=== PATIENT | female | born 2000 | race Caucasian/White ===

== ENCOUNTER 2025-02-27 07:01 | Inpatient (IN) | payer MEDICAID ==
[2025-02-27] MEDS ORDERED: Carboprost Tromethamine 250 MCG/1 ML Amp IM PRN (07:23)
[2025-02-27] MEDS ORDERED: Sodium Chloride 0.9% 10 ML Syringe FLUSH PRN (07:23)
[2025-02-27] MEDS ORDERED: Misoprostol 50 MCG (1/2 of 100 MCG) Tab PO PRN (07:23)
[2025-02-27] MEDS ORDERED: Penicillin G Potassium 3 MILLUNITS in Sodium Chloride 0.9% 100 ML IV SCH (07:30)
[2025-02-27] MEDS ORDERED: Oxytocin/Lactated Ringers 30 UNIT/500 ML BAG IV SCH (07:30)
[2025-02-27 08:34] LABS: PLATELET COUNT,PLT 162.0 10^3/uL (150-450); RED BLOOD CELL COUNT 4.12 10^6/uL (4.2-5.4); WHITE BLOOD CELL COUNT,WBC 11.3 10^3/uL (5.0-10.0)
[2025-02-27] MEDS: Lactated Ringers 1,000 ML IV SCH (08:56)
[2025-02-27] MEDS: Penicillin G Potassium 5 MILLUNITS in Sodium Chloride 0.9% 100 ML IV ONE (08:57)
[2025-02-27] MEDS: Misoprostol 50 MCG (1/2 of 100 MCG) Tab PO SCH (09:07)
[2025-02-27] MEDS: Penicillin G Potassium 3 MILLUNITS in Sodium Chloride 0.9% 100 ML IV SCH (13:09)
[2025-02-27] MEDS: Lactated Ringers 1,000 ML IV ONE (19:35)
[2025-02-27] MEDS: Ondansetron 4 MG/2 ML SDV IVPUSH PRN (23:04)
[2025-02-27] MEDS: Oxytocin/Normal Saline 30 UNIT/500 ML BAG IV SCH (23:57)
[2025-02-28] MEDS ORDERED: Oxytocin 10 Units/1 ML SDV IM PRN (07:57)
[2025-02-28] MEDS: Prenatal Multivitamin with Calcium/Folic Acid/Iron Tab PO SCH (08:28)
[2025-02-28] MEDS: Benzocaine/Menthol 20%-0.5% Spray 78 GM Cannister TOP PRN (08:29)
[2025-02-28] MEDS: Witch Hazel Medicated Pads 100/Jar TOP PRN (08:29)
[2025-02-28] MEDS: Ketorolac 30 MG/ML SDV IVPUSH PRN (16:39)
[2025-03-01 11:31] LABS: PLATELET COUNT,PLT 160.0 10^3/uL (150-450); RED BLOOD CELL COUNT 3.37 10^6/uL (4.2-5.4); WHITE BLOOD CELL COUNT,WBC 14.3 10^3/uL (5.0-10.0)
== END 2025-03-02 10:45 | disposition home or self-care (01) | DRG 768 ==
LOC: DL.OB 07:01 → OBSVTOIN 02-28 07:01
PROVIDERS: ADMIT Family Medicine; ATTEND Family Medicine
PROC: 10D07Z6 Extraction of Products of Conception, Vacuum, Via Natural or Artificial Opening (ICD-10-PCS; principal; 2025-02-28)
PROC: 0DQR0ZZ Repair Anal Sphincter, Open Approach (ICD-10-PCS; 2025-02-28)
PROC: 10907ZC Drainage of Amniotic Fluid, Therapeutic from Products of Conception, Via Natural or Artificial Opening (ICD-10-PCS; 2025-02-28)
PROC: 4A1HXCZ Monitoring of Products of Conception, Cardiac Rate, External Approach (ICD-10-PCS; 2025-02-28)
PROC: 3E03329 Introduction of Other Anti-infective into Peripheral Vein, Percutaneous Approach (ICD-10-PCS; 2025-02-28)
PROC: 3E0DXGC Introduction of Other Therapeutic Substance into Mouth and Pharynx, External Approach (ICD-10-PCS; 2025-02-28)
PROC: 00HU33Z Insertion of Infusion Device into Spinal Canal, Percutaneous Approach (ICD-10-PCS; 2025-02-28)
PROC: 3E0R3BZ Introduction of Anesthetic Agent into Spinal Canal, Percutaneous Approach (ICD-10-PCS; 2025-02-28)
DX: O48.0 Post-term pregnancy (principal); Z37.0 Single live birth; D62 Acute posthemorrhagic anemia; O70.20 Third degree perineal laceration during delivery, unspecified; O98.32 Other infections with a predominantly sexual mode of transmission complicating childbirth; Z3A.41 41 weeks gestation of pregnancy; O99.824 Streptococcus B carrier state complicating childbirth; O90.81 Anemia of the puerperium; A60.00 Herpesviral infection of urogenital system, unspecified
CPT/HCPCS: 36415; 51701; 59409; 85027; A9270-GY; J1885; J2405; J2540; J2590; J7120